=== PATIENT | female | born 1990 | race Caucasian/White ===

== ENCOUNTER 2023-10-14 18:22 | Emergency (ER) | payer BC, OTHER, SELFPAY ==
[2023-10-14 18:31] VITALS: BP 132/83; PULSE 83; RESP 18; TEMP 37.3; O2SAT 100
[2023-10-14 18:34] VITALS: BP 132/83; PULSE 83; RESP 18; TEMP 37.3; O2SAT 100
--- NOTE | 2023-10-14 18:41 | ED.URI ---
HPI - URI/Sore Throat General Chief Complaint: Upper Respiratory Infection Stated Complaint: throat/eye/can't taste or smell Time Seen by Provider: 10/14/23 18:45 Source: patient, RN notes reviewed and old records reviewed Mode of arrival: ambulatory Limitations: no limitations History of Present Illness HPI Narrative: 33 year old female who presents to [facility] with complaints of sore throat, stuffy nose and drainage, and no smell or taste which started last night, Patient reports that this morning she noted redness,crusting and some mucoid drainage from her left eye. Patient reports that she did take a home COVID test about 1000 today which was negative. Patient reports that she has not had a known fever but did have chills 2 nights ago. MD elicited complaint: sore throat, rhinorrhea, nasal congestion and other (left eye redness and drainage) Onset (ago): day(s) (last night) Pain scale (0-10): 3 Able to tolerate fluids by mouth: Yes Treatments prior to arrival: other (warm compresses to left eye) Related Data Allergies Allergy/AdvReac Type Severity Reaction Status Date / Time No Known Allergies Allergy Unverified 12/02/16 14:19 Review of Systems Review of Systems: CONSTITUTIONAL: Denies malaise, chills reported 2 night ago, no sweats, no known fevers. EYES: Denies visual changes, positive for redness to left eye with mucoid drainage, crusting this morning or left eye.redness,no visual changes or sharp pain ENT: Reports rhinorrhea, congestion, sinus pain, no otalgia and positive for sore throat. CARDIOVASCULAR: Denies chest pain, palpitations, or edema. RESPIRATORY: Reports cough.? Denies dyspnea. GASTROINTESTINAL: Denies abdominal pain, nausea, vomiting, diarrhea SKIN: Denies rash or itching. MUSCULOSKELETAL: Denies myalgia. NEUROLOGIC: Denies headache. All systems reviewed & are unremarkable except as noted in HPI and below PMFSH Past Medical History Medical History (Updated 10/15/23 @ 10:36 by Melanie Amanda NP) Asthma as child Surgical History Surgical History (Updated 10/15/23 @ 10:32 by Mealnie Amanda NP) Previous section X2 Social History Social History (Updated 10/15/23 @ 10:29 by Melanie Amanda NP) Smoking status: Never smoker Alcohol intake: current Alcohol use details: rare Substance use: never Substance use type: does not use Living arrangements: with family Gender identity (if verbalized by the patient): Female Comments At time of signature, agree with nursing past medical, surgical, social and family history. There is no relevant family history pertinent to the presenting complaint Exam Narrative: GENERAL: Well-appearing, well-nourished, and in no acute distress. HEAD: Normocephalic EYES: PERRLA, conjunctivae red and sclera red with mucoid drainage left eye, no sharp pain or visual changes ENT: Nares clear, turbinates edematous and erythematous, clear discharge. Mucous membranes moist. TM pearly peace with dull light reflex bilaterally; no tragal tenderness. Oropharynx erythematous without lesions. Tonsils not enlarged and without exudate, no drooling, no hoarseness, no trismus, uvula midline.some post nasal drainage NECK: Supple. No lymphadenopathy CHEST: Clear to auscultation, breath sounds equal. No wheezing, rhonchi, rales, or stridor. No respiratory distress, speaks in full sentences.SAO2 100% on room air HEART: Regular rate and rhythm. No murmur heard. SKIN: Warm, dry, no rash. NEURO: Alert and oriented x3. PSYCH: Normal mood and affect Course Course Emergency Course: Patient is aware of diagnosis, understands and agrees to treatment plan.? Anticipatory guidance given.? Patient agrees to follow-up as directed and is aware of reasons to seek care at the emergency department. Portions of this record may have been created with voice recognition software Level of Care: Express Care Visit Vital Signs Vital sig
== END 2023-10-14 19:24 | disposition home or self-care (01) ==
PROVIDERS: Emergency Provider Registered Nurse; PCP Internal Medicine
DX: J06.9 Acute upper respiratory infection, unspecified (principal); H10.9 Unspecified conjunctivitis; J02.9 Acute pharyngitis, unspecified
CPT/HCPCS: 87081; 87880; 99203; G0463

== ENCOUNTER 2024-01-06 10:04 | Emergency (ER) | payer OTHER, BC, SELFPAY ==
[2024-01-06 10:12] VITALS: BP 117/73; PULSE 65; RESP 18; TEMP 36.5; O2SAT 100
--- NOTE | 2024-01-06 10:24 | ED.GENADULT ---
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 She was bit by the dog at that location on Tuesday in the anterior left thigh. Patient has puncture malcolm to thigh with surrounding bruising no induration of tissue or any drainage from site. Patient reports that her tetanus is not up to date. Patient reports that the post office made her come and get checked out, has not had fever and denies any acute pain reports that tenderness present upon palpation off her left thigh MD complaint: dog bite left thigh Onset (ago): day(s) (3 days ago) Location: left and lower extremity (thigh) Severity scale (1-10): 4 Treatments prior to arrival: other (washed with soap and water) Related Data Allergies Allergy/AdvReac Type Severity Reaction Status Date / Time No Known Allergies Allergy Verified 01/06/24 10:22 Review of Systems Review of Systems: CONSTITUTIONAL: Denies fever, chills, or sweats. CARDIOVASCULAR: Denies chest pain, palpitations, or edema. RESPIRATORY: Denies cough or dyspnea. GASTROINTESTINAL: Denies abdominal pain, nausea, vomiting SKIN: Reports redness and swelling to bite area on left thigh. Denies purulent drainage, no vesicles, puncture wound site with surrounding ecchymosis. MUSCULOSKELETAL: Denies myalgia. NEUROLOGIC: Denies headache, numbness All systems reviewed & are unremarkable except as noted in HPI and below PMFSH Past Medical History Medical History Asthma as child Surgical History Surgical History Previous section X2 Social History Social History Smoking status: Never smoker Alcohol intake: current Alcohol use details: rare Substance use: never Substance use type: does not use Living arrangements: with family Gender identity (if verbalized by the patient): Female Comments At time of signature, agree with nursing past medical, surgical, social and family history. There is no relevant family history pertinent to the presenting complaint Exam Narrative: GENERAL: Well-appearing, well-nourished, and in no acute distress. HEAD: Normocephalic, atraumatic. EYES: PERRLA and EOMI. ENT: Nares clear, no rhinorrhea or epistaxis. Mucous membranes moist. NECK: Supple.no lymphadenopathy CHEST: Clear to auscultation. No respiratory distress.SAO2 100% on room air HEART: Regular rate and rhythm. No murmur heard. Normal peripheral pulses. ABDOMEN: Soft, nontender, nondistended, normal active bowel sounds. EXTREMITIES: Normal range of motion. No edema. SKIN: Warm, dry. Erythema, tenderness, no warmth with puncture malcolm noted to center 0.5cm in size with surrounding bruising totalling 2 cm X 2.5 cm. No vesicles, no necrosis,no acute pain to site. NEURO: No focal deficits. Alert and oriented x3. Course Course Emergency Course: Patient is aware of diagnosis, understands and agrees to treatment plan. Anticipatory guidance given. Patient agrees to follow-up as directed and is aware of reasons to seek care at the emergency department. Portions of this record may have been created with voice recognition software Level of Care: Express Care Visit Vital Signs Vital signs: Vital Signs Temperature 36.5 C 01/06/24 10:12 Pulse Rate 65 01/06/24 10:12 Respiratory Rate 18 01/06/24 10:12 Blood Pressure 117/73 01/06/24 10:12 Pulse Oximetry 100 01/06/24 10:12 Oxygen Delivery Room Air 01/06/24 10:12 Temp
[2024-01-06] MEDS: TETANUS,DIPHTHERIA,AC PERTUSSIS ADULT (0.5 ML) BOOSTRIX IM (10:38)
== END 2024-01-06 10:50 | disposition home or self-care (01) ==
PROVIDERS: Emergency Provider Registered Nurse; PCP Internal Medicine
DX: S71.132A Puncture wound without foreign body, left thigh, initial encounter (principal); W54.0XXA Bitten by dog, initial encounter; Y99.0 Civilian activity done for income or pay; Z23 Encounter for immunization
CPT/HCPCS: 90471; 90715; 99213; G0463